=== PATIENT | male | born 1990 | race Caucasian/White ===

== ENCOUNTER 2017-12-05 10:13 | Emergency (ER) | payer BC, OTHER ==
[~2017-12-05] VITALS: Ht 180.3 cm; Wt 175.0 kg
[~2017-12-05 10:13] MED LIST: CLEO300C2 PO; HYDR-3580 PO; Z.0.NO CURRENT MEDS
[2017-12-05 10:15] VITALS: BP 131/61; PULSE 82; RESP 18; TEMP 98.6; O2SAT 96
--- NOTE | 2017-12-05 11:43 | RADRPT ---
EXAM DATE: 12/05/2017 11:28 AM EDT AGE/SEX: 27 years / Male INDICATIONS: Right upper rib pain CLINICAL DATA: This is the patient's initial encounter. Patient reports that signs and symptoms have been present for 1 day and indicates a pain score of 8/10. MEDICAL/SURGICAL HISTORY: . . COMPARISON: No prior [facility] [place] exams available for comparison. FINDINGS: A single AP view of the chest demonstrates the lungs to be symmetrically aerated without evidence of mass, infiltrate or effusion. The cardiomediastinal contours are unremarkable. Osseous structures a re intact. CONCLUSION: Negative examination. Electronically signed by: uAgust Isaac MD 12/05/2017 11:42 AM EDT
--- NOTE | 2017-12-05 11:46 | PD ---
HPI Chief Complaint: Pain: Acute or Chronic Time Seen by Provider: 10:50 Travel History International Travel<30 days: No Contact w/Intl Traveler<30days: No Traveled to known affect area: No History of Present Illness HPI This is a 27-year-old male here with right-sided rib pain for 9 days. He reports he injured the ribs when he fell on top of a coworker from a standing position. He was seen in [facility] and had a negative x-ray of the chest at that time. He reports the ribs have been painful since with pain with deep inspiration. No shortness of breath. Symptom severity is mild to moderate. PFSH Past Medical History Hx Anticoagulant Therapy: No Cardiovascular Problems: Yes (HTN) Diabetes: No Past Surgical History Tonsillectomy: Yes Other Surgery: Yes (CIRCUMCISION) Social History Alcohol Use: Yes (SOCIALLY) Tobacco Use: No Substance Use: No Allergies-Medications (Allergen,Severity, Reaction): Coded Allergies: Sulfa (Sulfonamide Antibiotics) (Unverified Allergy, Intermediate, UNKNOWN , 12/05/17) cefaclor (Unverified Allergy, Intermediate, UNKNOWN, 12/05/17) Reported Meds & Prescriptions Reported Meds & Active Scripts Active No Active Prescriptions or Reported Medications Review of Systems Except as stated in HPI: all other systems reviewed are Neg General / Constitutional: No: Fever Eyes: No: Visual changes HENT: No: Headaches Cardiovascular: No: Chest Pain or Discomfort Respiratory: No: Shortness of Breath Gastrointestinal: No: Abdominal Pain Physical Exam Narrative GENERAL: Alert and well-appearing 19-year-old male SKIN: Warm and dry. HEAD: Normocephalic. EYES:No injection or drainage. NECK: Supple, trachea midline. CARDIOVASCULAR: Regular rate and rhythm without murmurs, gallops, or rubs. Chest wall: +TTP right anterior/lateral ribs. No palpable fracture. No crepitus. RESPIRATORY: Breath sounds equal bilaterally. No accessory muscle use. GASTROINTESTINAL: Abdomen soft, non-tender, nondistended. Data Data Last Documented VS Vital Signs Date Time Temp Pulse Resp B/P (MAP) Pulse Ox O2 Delivery O2 Flow Rate FiO2 12/05/17 10:15 98.6 82 18 131/61 (84) 96 Orders Orders Chest, Single Ap (12/05/17 ) [facility] Medical Decision Making Medical Screen Exam Complete: Yes Emergency Medical Condition: Yes Differential Diagnosis Rib fracture, contusion, pneumothorax Narrative Course 27-year-old male here with right rib pain approximately a week after he fell. He is well-appearing. X-ray is negative for fracture or pneumothorax. Diagnosis Primary Impression: Rib contusion Qualified Codes: S20.211A - Contusion of right front wall of thorax, initial encounter Referrals: Primary Care Physician Additional Instructions: Ibuprofen as needed for pain. Avoid heavy lifting or straining his activity. Scripts No Active Prescriptions or Reported Meds Disposition: 01 DISCHARGE HOME Condition: Stable Hailee Swan Dec 05, 2017 11:46
== END 2017-12-05 12:14 | disposition home or self-care (01) ==
LOC: PHEFT 10:13
DX: S20.219A Contusion of unspecified front wall of thorax, initial encounter (principal); W19.XXXA Unspecified fall, initial encounter; I10 Essential (primary) hypertension
CPT/HCPCS: 71045; 99283